=== PATIENT | female | born 1980 ===

== ENCOUNTER 2020-09-30 11:37 | Inpatient (IN) ==
[2020-09-30] MEDS ORDERED: CeFAZolin Syr 2,000MG/20 ML 2,000 MG/20 ML SYRINGE IVPB ONE (12:05)
[2020-09-30] MEDS ORDERED: Lidocaine -MPF 2% 2 ML VIAL ONE (12:08)
[2020-09-30] MEDS ORDERED: cefOXitin 2,000 MG in Water for inj. (sterile) 20 ML IVP ONE (12:08)
[2020-09-30] MEDS ORDERED: Ondansetron 4 MG/2 ML VIAL ONE (12:08)
[2020-09-30] MEDS ORDERED: *HR* Rocuronium Bromide 50 MG/5 ML VIAL ONE ×2 (12:08→14:04)
[2020-09-30] MEDS ORDERED: Lidocaine HCL 4 ML Topical Solution (Laryng-O-Jet Kit Sterile Pak) TP ONE (12:08)
[2020-09-30] MEDS ORDERED: *HR* Midazolam HCl 2 MG/2 ML VIAL ONE (12:10)
[2020-09-30] MEDS ORDERED: *HR* FentaNYL (PF) 100 MCG/2 ML VIAL ONE ×2 (12:10→13:51)
[2020-09-30] MEDS ORDERED: *HR* Propofol 200 MG/20 ML VIAL IVP ONE (12:10)
[2020-09-30] MEDS ORDERED: Ondansetron 4 MG/2 ML VIAL IVP PRN (12:33)
[2020-09-30] MEDS ORDERED: *HR* OxyCODONE Immed Rel 5 MG TABLET PO PRN (12:33)
[2020-09-30] MEDS ORDERED: *HR* HYDROmorphone PF 0.5 MG/0.5 ML SYRINGE IVP PRN (12:33)
[2020-09-30] MEDS: Ringers Solution, Lactated 1,000 ML IVC SCH ×2 (12:47→14:00)
[2020-09-30] MEDS ORDERED: EPHEDrine 50 MG/ML VIAL ONE (14:05)
[2020-09-30] MEDS ORDERED: Ketorolac 30 MG/ML VIAL ONE (14:40)
[2020-09-30] MEDS ORDERED: Sugammadex Sodium 200 MG/2 ML VIAL IV ONE (14:46)
[2020-09-30] MEDS ORDERED: *HR* HYDROMORPHONE 2 MG/ML VIAL ONE (14:53)
[2020-09-30] MEDS ORDERED: *HR* HYDROmorphone (PF) 1 MG/ML SYRINGE IVP PRN (14:59)
[2020-09-30] MEDS ORDERED: Ketorolac 30 MG/ML VIAL IVP PRN (14:59)
[2020-09-30] MEDS ORDERED: Naloxone 0.4 MG/ML INJ IVP PRN (14:59)
[2020-09-30] MEDS: *HR* OxyCODONE/APAP 5/325 TABLET PO PRN (23:16)
[2020-10-01] MEDS: Simethicone 80 MG TAB.CHEW PO PRN ×2 (01:48→08:48)
[2020-10-01] MEDS: *HR* OxyCODONE/APAP 5/325 TABLET PO PRN ×3 (04:13→13:41)
[2020-10-01 04:52] LABS: Basophils % 0.1 %; Eosinophils % 0.1 %; Hemoglobin 9.4 g/dL (11.5-15.4); Immature Granulocytes % 0.6 % (0-4); Lymphocytes # 1.8 K/mcL (0.6-4.6); Lymphocytes % 9.8 %; Mean Corpuscular HGB Conc 31.3 g/dL (31.6-35.5); Mean Corpuscular Hemoglobin 27.6 pg (28.0-33.3); Mean Corpuscular Volume 88.2 fL (83.0-100.0); Mean Platelet Volume 10.8 fL (9.4-12.4); Monocytes # 1.3 K/mcL (0.0-1.3); Monocytes % 7.1 %; Neutrophils # 15.2 K/mcL (1.6-8.9); Platelet Count 421 K/mcL (140-400); Red Cell Distribution Width 14.6 % (11.5-14.5); Segmented Neutrophils % 82.3 %; White Blood Count 18.5 K/mcL (4.3-11.1)
[2020-10-01 07:29] VITALS: BP 125/73
== END 2020-10-01 15:57 | disposition home or self-care (01) | DRG 743 ==
LOC: SAMDAY 11:37 → 1NENUOBS 15:42
PROVIDERS: ADMIT Obstetrics & Gynecology; ATTEND Obstetrics & Gynecology